=== PATIENT | female | born 1990 | race Two or more races ===

== ENCOUNTER 2021-08-13 21:52 | Emergency (ER) | payer OTHER ==
[~2021-08-13] VITALS: Ht 152.4 cm; Wt 44.5 kg
[2021-08-14] MEDS ORDERED: MOLNUPIRAVIR (200 MG PO (02:05)
[2021-08-14] MEDS ORDERED: ACETAMINOPHEN650 M2 PO (02:05)
[2021-08-14] MEDS ORDERED: MUCINEX DM ER1 EAC1 PO (02:05)
[2021-08-14] MEDS ORDERED: MELATONIN5 M2 PO (02:05)
[2021-08-14] MEDS ORDERED: VITAMIN C WIT1000 MG PO (02:05)
[2021-08-14] MEDS ORDERED: BACTRIM DS TAB1 EACH PO (02:16)
== END 2021-08-14 03:03 | disposition home or self-care (01) ==
LOC: ER 21:52
DX: U07.1 COVID-19 (principal)